=== PATIENT | female | born 1975 | race Caucasian/White ===

== ENCOUNTER 2021-09-18 15:38 | Emergency (ER) | payer OTHER, SELFPAY ==
[2021-09-18 15:46] VITALS: BP 146/100; PULSE 120; RESP 20; TEMP 37.2; O2SAT 98; BMI 21.6
--- NOTE | 2021-09-18 16:12 | XRR_ITS ---
PROCEDURE INFORMATION: Exam: XR Right Finger(s) Exam date and time: 09/18/2021 4:18 PM Age: 45 years old Clinical indication: Injury or trauma; Blunt trauma (contusions or hematomas); Left; Injury details: History--smashed/cut lt. Middle finger; Additional info: Trauma; Middle TECHNIQUE: Imaging protocol: XR Right fingers. Views: Minimum 2 views. COMPARISON: No relevant prior studies available. FINDINGS: Bones/joints: Oblique fracture through the distal tuft of the 3rd digit with volar displacement. Soft tissues: Laceration at the tip of the 3rd digit. XR/XR finger RT min 2V 42616 IMPRESSION: Fracture through the distal tuft of the 3rd digit with volar displacement.
--- NOTE | 2021-09-18 16:16 | W.ED.UPPEXIN ---
HPI - Extremity Injury (Upper) General: Chief Complaint: Extremity Injury, Upper Stated Complaint: Left Middle Finger Cut bad Time Seen by Provider: 09/18/21 15:59 Source: patient and family Mode of arrival: ambulatory Limitations: no limitations History of Present Illness: Patient is a nice 45-year-old female presents to ED today along with her for evaluation following trauma to her left middle finger. Patient states just prior to arrival she was on a riding lawnmower when a portion of the mower got caught on a tree. She states at some point she reached out her hand and her left middle finger got crushed between the mower and the tree branch. Patient's tetanus is UTD. complaint: injury to: left and finger Onset (ago): hour(s) Other Extremity Injury: Left: fingers Other injuries: none Place: home Severity: severe Relieving factors: none Exacerbating factors: none Context: laceration and crush Associated symptoms: Reports no associated symptoms Treatments prior to arrival: bandage Review of Systems Musc: Reports: extremity pain (L middle finger); Denies: extremity swelling, joint pain or joint swelling Skin/Breast: Reports: other (trauma to L middle finger) Neuro: Denies: numbness in extremities or sensory changes Physical Exam Const: COMMON NORMALS: average body habitus, patient oriented x3, no limitations, healthy appearing, alert and well nourished GENERAL APPEARANCE: cooperative and in distress (pt uncomfortable secondary to pain) Extremity: COMMON NORMALS: full ROM and capillary refill normal GENERAL: Yes normal exam except as noted LEFT UPPER EXTREMITY: Yes hand & digits (L middle finger trauma-see below) OTHER: pt has an avulsion/distal partial amputation of her L middle finger; most of her palmar pad of her finger has been avulsed but is still attached and avulsed fragment does appear viable; I can visualize her flexor tendon and this appears intact; she does maintain full ROM of digit; sensory/cap refill intact; I do not visualize any bony fragments at this time but will obtain XRs to evaluate for bony injury; her nail plate is still attached to nail fold and there is no damage to either but laceration/injury does extend through a portion of her nail bed Neuro: COMMON NORMALS: patient oriented x3, moves all extremities, no focal motor deficits and no sensory deficits noted SENSORIUM/ORIENTATION: Yes alert Procedures Laceration Laceration 1: Site: hand Side (If applicable): left (middle finger) Size (cm): 3.5 Description: flap and irregular Depth: simple, single layer and [id number] (distal tip partial amputation) Local Anesthetic: lidocaine 1% (digital block) Amount of anesthesia used (mL): 4 Skin layer closed with: nylon Size (cm): 4-0 Number of sutures: 9 Technique: simple, interrupted Subcutaneous layer closed with: vicryl Size: 4-0 Number of sutures: 3 Technique: simple, interrupted Course Vital Signs: Vital signs: Vital Signs Temperature 98 F 09/18/21 17:56 Pulse Rate 65 09/18/21 17:56 Respiratory Rate 16 09/18/21 17:56 Blood Pressure 118/91 09/18/21 17:56 Pulse Oximetry 96 09/18/21 17:56 MDM - Extremity Injury (Upper) Medical Decision Making Pt has an open tuft fracture of her distal phalanx/partial distal tip amputation. Digital block performed and wound was copiously irrigated by myself. Dr. Troy also evaluated finger/wound and agrees with plan for repair and orthopedic follow up. I don't appreciate any tendon/nerve damage/or vascular compromise at this time. Patient will be splinted and given pain meds/abx. She was given IV ancef here. Will place referral for her to be seen at orthopedics for further evaluation/treatment/management. Strict return to ED precautions given. Lab Data Radiology Impressions Finger X-Ray 09/18/21 16:12 IMPRESSION: Fracture through the distal tuft of the 3rd digit with volar displacement. Discharge Plan Discharge Patient Disposition: Home Clinical Impression: Open fracture of tuft of distal phalanx of finger Partial traumatic amputation of left middle finger through phalanx Qualifiers: Encounter type: initial encounter Qualified Code(s): S68.623A - Partial traumatic transphalangeal amputation of left middle finger, initial encounter Condition: Stable Prescriptions: New hydrocodone-acetaminophen 5-325 mg tablet 1 tab PO Q4H PRN (Reason: pain) Qty: 20 0RF cephalexin 500 mg capsule 500 mg PO Q6H 7 Days Qty: 28 0RF Discharge Orders: Discharge ED (Routine); Ordered 09/18/21 Ordered By: Carmen Romero Referrals: Frederick,Enrique F, DO [Staff Physician] - Activity Restrictions/Additional Instructions: As we discussed monitor for infection such as redness, swelling, increased pain, streaking up your hand/arm, fevers, or discharge to your wound. You should hear from case management soon for your orthopedic follow up appointment. Keep wound clean with warm soap and water 1-2x daily. Daily dressing changes. Need to wear splint at all times apart from showering/bathing. Coding Level of Care Code ED [facility] Exam Expanded Problem Focused
[2021-09-18 16:20] VITALS: RESP 18; O2SAT 96
[2021-09-18] MEDS: morphine 4 mg/mL SDV 1 mL IVP (16:20)
[2021-09-18] MEDS: ondansetron 2 mg/ML SDV 2 mL 4 MG IVP (16:21)
[2021-09-18] MEDS: ceFAZolin 1,000 mg SDV 1000 MG IVP (16:21)
[2021-09-18] MEDS: HYDROcodone-acetaminophen 5-325 mg Tablet 1 TAB PO (17:32)
[2021-09-18] MEDS: neomycin-poly-bacitracin oint 0.9 gm Pkt 1 APPLIC TOPICAL (17:33)
[2021-09-18 17:56] VITALS: BP 118/91; PULSE 65; RESP 16; TEMP 36.6; O2SAT 96
--- NOTE | 2021-09-20 16:43 | DCPLANNER ---
Addendum entered by Sana Womack 09/27/21 12:27: Patient had a follow up appointment scheduled 09.21.[address] Kohler at ortho - patient did attend appointment. Original Note: multimedia services manager had message to schedule a follow up appointment for patient with ortho. multimedia services manager sent patients information to the front office staff at ortho. Patients information will be printed and reviewed. Clinic will call patient with appointment information.
== END 2021-09-18 17:58 | disposition home or self-care (01) ==
PROVIDERS: Emergency Provider Physician Assistant
DX: S62.633B Displaced fracture of distal phalanx of left middle finger, initial encounter for open fracture (principal); W23.0XXA Caught, crushed, jammed, or pinched between moving objects, initial encounter; S68.623A Partial traumatic transphalangeal amputation of left middle finger, initial encounter
CPT/HCPCS: 12002; 29130; 64450; 73140; 96374; 96375; 99284; A6446; J0690; J2270; J2405

== ENCOUNTER → 2021-10-02 13:46 | Outpatient (BNVA) | payer OTHER, SELFPAY | PROVIDERS: PCP Family Medicine; Visit Provider Nurse Practitioner Family | DX: S62.633A Displaced fracture of distal phalanx of left middle finger, initial encounter for closed fracture (principal); X58.XXXA Exposure to other specified factors, initial encounter | CPT/HCPCS: 73130 ==

== ENCOUNTER 2022-02-05 08:35 | Outpatient (RCR) | payer OTHER, SELFPAY | END 2022-02-08 23:59 | disposition home or self-care (01) | LOC: SOT 08:35 | PROVIDERS: PCP Family Medicine; Visit Provider Orthopaedic Surgery Hand Surgery | DX: S61.213D Laceration without foreign body of left middle finger without damage to nail, subsequent encounter (principal); X58.XXXD Exposure to other specified factors, subsequent encounter | CPT/HCPCS: 97110; 97140; 97166 ==

== ENCOUNTER 2022-02-09 06:00 | Outpatient (RCR) | payer OTHER, SELFPAY | END 2022-03-11 23:59 | disposition home or self-care (01) | LOC: SOT 06:00 | PROVIDERS: PCP Family Medicine; Visit Provider Orthopaedic Surgery Hand Surgery | DX: S61.213D Laceration without foreign body of left middle finger without damage to nail, subsequent encounter (principal); X58.XXXD Exposure to other specified factors, subsequent encounter | CPT/HCPCS: 97018; 97110; 97140; 97760 ==

== ENCOUNTER 2022-03-12 06:00 | Outpatient (RCR) | payer OTHER, SELFPAY | END 2022-03-15 23:59 | disposition home or self-care (01) | LOC: SOT 06:00 | PROVIDERS: PCP Family Medicine; Visit Provider Orthopaedic Surgery Hand Surgery | DX: S69.92XA Unspecified injury of left wrist, hand and finger(s), initial encounter (principal) | CPT/HCPCS: 97018; 97110; 97140 ==

== ENCOUNTER → 2023-11-27 15:08 | Outpatient (BNVA) | payer BC, SELFPAY | PROVIDERS: PCP Family Medicine; Visit Provider Family Medicine | DX: K63.5 Polyp of colon (principal); Z00.00 Encounter for general adult medical examination without abnormal findings | CPT/HCPCS: 80053; 80061 ==